=== PATIENT | male | born 1980 | race African-American/Black ===

== ENCOUNTER 2017-11-15 17:18 | Inpatient (IN) ==
--- NOTE | 2017-11-15 17:37 | Emergency Department Report ---
Chest Pain HPI - General Chief Complaint: Chest Pain <Ahmet Dee Q - 11/15/17 17:37> Stated Complaint: chest pain <Ahmet Dee - 11/15/17 17:37> Time Seen by Provider: 11/15/17 17:37 <Ahmet Dee Q - 11/15/17 17:37> Source: patient <Ahmet Dee Q - 11/15/17 18:31> Mode of arrival: ambulatory <Ahmet Dee Q - 11/15/17 18:31> Limitations: no limitations <Ahmet Dee - 11/15/17 18:31> - History of Present Illness HPI narrative: Patient is a 37-year-old male presents the ER for evaluation of rapid heart rate chest pain. Patient no history of rapid heart rate, some day smoker, hypertensive currently off his medications no cholesterol no prior MIs. Patient about half an hour prior to arrival developed left anterior chest pain with radiation to his left arm associated nausea or diaphoresis. Patient decided present to the ER with pain did not alleviate on arrival patient irregularly irregular rhythm at 147. <Baldo Deen Q - 11/15/17 18:31> MD complaint: chest pain <Ahmet Dee Q - 11/15/17 18:31> Onset (ago): minute(s) (30) <Ahmet Dee - 11/15/17 18:31> Duration: constant <Ahmet Dee - 11/15/17 18:31> Onset: during rest <Baldo Deen Q - 11/15/17 18:31> Pain location: substernal, left chest <Baldo Deen Romy - 11/15/17 18:31> Quality: tightness <Baldo Deen Q - 11/15/17 18:31> Aspirin Today: 81 mg x 4, provided by ED <Baldo Deen Romy - 11/15/17 18:31> - Related Data Home Medications Medication Instructions Recorded Confirmed hydroCHLOROthiazide 25 mg PO DAILY 11/15/1718 [Hydrochlorothiazide] <Baldo Deen Q - 11/15/17 18:31> Allergies Allergy/AdvReac Type Severity Reaction Status Date / Time diltiazem [From Cardizem] Allergy Mild Itching Verified 11/15/17 17:52 <Ahmet Dee Q - 11/15/17 18:31> Review of Systems Constitutional: Denies: fever, chills <Ahmet Dee Q - 11/15/17 18:31> Eyes: Denies: eye pain, eye discharge <Ahmet Dee Q - 11/15/17 18:31> ENT: Denies: throat pain, dental pain <Ahmet Dee Q - 11/15/17 18:31> Cardiovascular: Reports: chest pain, palpitations, dyspnea on exertion < Baldo Deen Q - 11/15/17 18:31> Respiratory: Denies: cough, dyspnea, wheezes <Ahmet Dee Q - 11/15/17 18:31 > Gastrointestinal: Denies: abdominal pain, nausea, vomiting <Ahmet Dee Q - 11/15/17 18:31> Genitourinary: Denies: urgency, dysuria, frequency <Ahmet Dee Q - 18:31> Neurological: Denies: headache, weakness <Ahmet Dee Q - 11/15/17 18:31> Psychiatric: Denies: anxiety, depression <Ahmet Dee Q - 11/15/17 18:31> Endocrine: Denies: fatigue, heat or cold intolerance <Ahmet Dee Q - 18:31> Hematological/Lymphatic: Denies: easy bleeding <Ahmet Dee Q - 11/15/17 18: 31> [facility] Patient Stated Medical History Hypertension Yes <Ahmet Dee Q - 11/15/17 18:31> - Social History Smoking status: Current some day smoker <Ahmet Dee Q - 11/15/17 18:31> Substance use type: does not use <Ahmet Dee Q - 11/15/17 18:31> Alcohol intake frequency: does not drink <Ahmet Dee Q - 11/15/17 18:31> Physical Exam - Limitations Limitations: no limitations <Ahmet Dee Q - 11/15/17 18:31> - General General appearance: alert <Ahmet Dee Q - 11/15/17 18:31> - Eye Eye exam: Present: PERRL, EOMI <Ahmet Dee Q - 11/15/17 18:31> - ENT ENT exam: Present: normal oropharynx, mucous membranes moist, TM's normal bilaterally <Baldo Deen Q - 11/15/17 18:31> - Neck Neck exam: Present: full ROM, trachea midline <Baldo Deen Q - 11/15/17 18: 31> - Chest Chest inspection: Present: symmetric chest wall rise. Absent: tenderness < Baldo Deen Q - 11/15/17 18:31> - Respiratory Respiratory exam: Present: normal lung sounds bilaterally. Absent: respiratory distress, wheezes, stridor <Baldo Deen Q - 11/15/17 18:31> - Cardiovascular Cardiovascular exam: Present: regular rate, normal rhythm, normal heart sounds <Baldo Deen 11/15/17 18:31> - Abdominal Exam Abdominal exam: Present: soft, normal bowel sounds. Absent: distention, tenderness <Baldo Deen 11/15/17 18:31> - Skin Skin exam: Present: warm, dry <Baldo Deen - 11/15/17 18:31> - Neurological Exam Neurological exam: Present: alert, oriented X3 <Baldo Deen Q - 11/15/17 18: 31> - Psychiatric Psychiatric exam: Present: normal affect, normal mood <Baldo Deen - 11/15 18:31> Course - Consultations Consultation #1: Dr. Craig: Admit to CCU. Cont esmolol and start amiodarone drip. <eb 11/15/17 20:16> Time: 20:05 <February,Hector 11/15/17 20:12> Vital Signs Temperature 98.6 F 11/15/17 17:21 Pulse Rate 79 11/15/17 17:21 Respiratory Rate 18 11/15/17 17:21 Blood Pressure 176/62 H 11/15/17 17:21 Pulse Oximetry 100 11/15/17 17:21 Temperature 98.8 F 11/16/17 11:30 Pulse Rate 125 H 11/16/17 11:45 Respiratory Rate 18 11/16/17 11:30 Blood Pressure 165/81 H 11/16/17 11:30 Pulse Oximetry 98 11/16/17 11:30 <Ahmet Dee - 11/15/17 17:37> Chest Pain - MDM Narrative Medical decision making narrative: Assumed care of pt at 1815; no evidence of ACS as cause of pts new-onset A-fib with RVR. EKG unremarkable. CXR unrevealing. Concern for PE as cause of pts sx. Will order CT-PE. CT-PE was negative, though sub-optimal perfusion at time images were collected. Pts HR has risen, despite repeated labetalol doses. Ordered esmolol drip and contacted recreational director for admission. Pt has been accepted for admission to CCU for further eval/treatment. After pt had been accepted to CCU, and after esmolol drip had been started and amiodarone bolus given, pt was seen to have a HR in the 180s and BP of 70/40. Pt was immediately assessed and found to be awake and alert. A repeat BP with a manual cuff was 110/50. Esmolol was increased to 100mcg/kg/min, with little change in pts HR, so rate was increased to 150mcg/kg/min. Pts HR then decreased to the 160s and BP was 140s/70s. After observing and HR remaining in the 160s, rate was increased to 200mcg/kg/min with resulting decrease in HR to 110s-130s and improvement in pts sx. Pt was then transferred to the CCU in stable condition. <11/15/17 21:34> - Differential Diagnosis Likely: fracture of rib, pneumothorax, stable angina, unstable angina pectoris, atypical chest pain, st elevation myocardial infarction, costochondritis, chest pain (PE) <11/15/17 20:12> - Medical Records Data Attestation: I reviewed the patient's medical records. <11/15 20:12> I reviewed the patient's medical records. <Ahmet Dee 11/15/17 18:31> - Lab Data Attestation: I reviewed the patient's lab results. <11/15/17 20:12> I reviewed the patient's lab results. <Ahmet Dee 11/15 18:31> Result diagrams: 11/16/17 04:12 11/16/17 04:12 <Ahmet Dee Q - 11/15/17 17:37> Lab Results 11/15/17 11/15/17 Range/Units 17:43 17:43 WBC 7.4 (4.5-11.0) T/MM3 RBC 5.08 (4.50-5.90) M/MM3 Hgb 14.7 (13.5-17.5) GM/DL Hct 43.2 (41-53) % MCV 85.0 (80-100) UM3 MCH 28.9 (26-34) UUG MCHC 34.0 (31-37) GM/DL RDW Std Deviation 40.9 (36.9-50.2) FL Plt Count 248 (130-400) T/MM3 MPV 10.1 (9.4-12.4) UM3 Immature Gran % (Auto) 0.1 (0.0-0.5) % Neut % (Auto) 42.8 (33-66) % Lymph % (Auto) 44.0 (23-45) % Craven % (Auto) 7.0 (0-9.0) % Eos % (Auto) 5.8 H (0-4) % Baso % (Auto) 0.3 (0-2) % Neut # (Auto) 3.2 (1.8-7.7) T/MM3 Lymph # (Auto) 3.3 (1-4.8) T/MM3 Craven # (Auto) 0.5 (0-0.8) T/MM3 Eos # (Auto) 0.4 (0-0.5) T/MM3 Baso # (Auto) 0.0 (0-0.2) T/MM3 Abs Immat Gran (auto) 0.01 (0.00-0.03) T/MM3 Turbidity < 20 (0-20) Sodium 143 (134-144) MEQ/L Potassium 4.2 (3.6-5) MEQ/L Chloride 105 (98-107) MEQ/L Carbon Dioxide 26 (22-30) MEQ/L Anion Gap 12 (5-15) MEQ/L BUN 15.0 (9-20) MG/DL Creatinine 0.9 (0.8-1.5) MG/DL GFR Calculation 95 BUN/Creatinine Ratio 17 (6-26) RATIO Glucose 106 (75-110) MG/DL Calculated Osmolality 276 (261-280) MOSM/KG Calcium 9.3 (8.4-10.2) MG/DL Total Bilirubin 0.40 (0.20-1.30) MG/DL Icterus Index < 2 (0-7) AST 37 (17-59) U/L ALT 36 (21-72) U/L Alkaline Phosphatase 107 (38-126) U/L Troponin I < 0.012 (0-0.12) ng/ml B-Natriuretic Peptide 56.2 (0-175) pg/mL Total Protein 8.3 H (6.3-8.2) G/DL Albumin 4.7 (3.5-5.0) G/DL Globulin 3.6 (2.4-3.6) G/DL Albumin/Globulin Ratio 1.3 (1.1-2.2) RATIO Specimen Hemolysis 54 H (0-25) <Shrub OakAhmet paez 11/15/17 18:31> - Radiology Data Attestation: I reviewed the patient's radiology results. < 20:12> CT PE: IMPRESSION: 1. No evidence of pulmonary embolism. 2. No alveolar infiltrate. 3. Right basilar linear parenchymal scarring or subsegmental collapse / atelectasis. <11/15/17 20:12> - EKG Data EKG #1 EKG attestation: Yes: I reviewed and interpreted this EKG. <LuizAhmet paez 11/15/17 18:31> Rate: tachycardia <Shrub OakAhmet paez 11/15/17 18:31> Rhythm: A.Fib <Shrub OakAhmet 11/15/17 18:31> [place]/QRS: normal <Shrub OakAhmet paez 11/15/17 18:31> Interpretation: no acute changes <Ahmet Dee 11/15/17 18:31> EKG #2 EKG attestation: Yes: I reviewed and interpreted this EKG. <02/25 21:24> EKG shows normal: axis, intervals, QRS complexes, ST-T waves < 21:24> Rate: tachycardia (103) <11/15/17 21:24> Rhythm: A.Fib <11/15/17 21:24> Critical Care Time Critical Care Time: Yes <11/15/17 21:34> Total Critical Care Time: 75 <11/15/17 21:34> Attestation: 75 min of critical care time assigned to this case due to its urgency, complexity of decision making, need for continued patient re-evaluation, or resources devoted to stabilizing the patient. <11/15/17 21:34> Disposition Clinical Impression: Atrial fibrillation with RVR <Ahmet Dee 11/16/17 12:45> Disposition: 02 To [facility] Acute Care <Ahmet Dee 11/16/17 12:45> Print Language: Mongolian <Ahmet Dee 11/16/17 12:45> Condition: Improved <Ahmet Dee 11/16/17 12:45> Prescriptions: No Action hydroCHLOROthiazide [Hydrochlorothiazide] 25 mg PO DAILY <Ahmet Dee 11/15/17 18:31> Time of Disposition: 20:16 <11/15/17 20:16> - Seen By: physician <11/15/17 20:16>
[2017-11-15] MEDS ORDERED: NITROGLYCERIN 0.4 MG SUBLINGUAL TABLET SL PRN (17:41)
[2017-11-15] MEDS ORDERED: ASPIRIN 81 MG CHEWABLE TABLET PO ONE (17:41)
[2017-11-15] MEDS ORDERED: DiltiaZEM 25 MG/5 ML INJECTION IVP ONE (17:42)
[2017-11-15] MEDS ORDERED: DiltiaZEM Drip 125 MG in NS 125 ML IV SCH (17:45)
[2017-11-15] MEDS ORDERED: LABETALOL 100mg/20ml INJECTION IVP ONE ×2 (17:49→18:42)
--- OUTSIDE RECORDS SUMMARY | 2017-11-15 17:52 | External Medical Summary | Continuity of Care Document ---
:1980 Author Organization [facility] [place] Allergies Active Description Code Type Severity Reaction Onset Reported/ Identified Relationship Clinical to Patient Status Yes No Known NKMA N/A N/A 11/18/2015 Allergies Medications There is no data. Problems Date Dx Attending Type Code Diagnosis Diagnosed By Coded 02/16/2014 Juan WEN, Admitting 607.82 VASCULAR DISORDER Thomas PENIS 02/16/2014 Juan WEN, Final 878.0 OPEN WOUND PENIS Thomas 02/25/2016 Harsha Final G47.10 Hypersomnia, Marquez, unspecified Jeff A 02/25/2016 Harsha Final G47.26 Circadian rhythm Marquez, sleep disorder, Jeff A shift work type 02/25/2016 Harsha Final R06.83 Snoring Marquez, Jeff A 03/02/2017 Merry, Final L02.416 Cutaneous abscess Geena M of left lower limb 03/18/2017 Luinstra, Final E66.9 Obesity, Bayron Hernández unspecified 03/18/2017 Luinstra, Final E78.5 Hyperlipidemia, Bayron Edgar unspecified 03/18/2017 Lu[place]ra, Final I10 Essential Bayron Hernández (primary) hypertension 03/18/2017 Lu[place]ra, Final R06.83 Snoring Bayron Edgar Procedures Code Description [place] [address] Office or 02/25/2016 other outpatient visit for the evaluation and management of a new patient, which requires these 3 lamb components: A comprehensive history; A comprehensive examination; Medical decision parvez 84178 Culture, 03/02/2017 presumptive, pathogenic organisms, screening only;.. 61123 Infectious 03/02/2017 agent antigen detection by immunoassay with direct optical observation; Streptococcus, group A.. 77559 Office or 03/02/2017 other outpatient visit for the evaluation and management of an established patient, which requires at least 2 of these 3 lamb components: An expanded problem focused history; An expanded prob 24002 Collection of 03/18/2017 venous blood by venipuncture 00987 General 03/18/2017 health panel This panel must include the following: Comprehensive metabolic panel (28984) Blood count, complete (CBC), automated and automated differential WBC count (59043 or 30346 and 94934) 94118 Comprehensive 03/18/2017 metabolic panel This panel must include the following: Albumin (41795) Bilirubin, total (80797) Calcium, total (28062) Carbon dioxide (bicarbonate) (69634) Chloride (15362) Creatinine (8 45575 Lipid panel 03/18/2017 This panel must include the following: Cholester 33070 Thyroid 03/18/2017 stimulating hormone (TSH) 35563 Blood count; 03/18/2017 complete (CBC), automated (Hgb, Hct, RBC, WBC and platelet count) and automated differential WBC count 65382 Office or 03/18/2017 other outpatient visit for the evaluation and management of an established patient, which requires at least 2 of these 3 lamb components: A detailed history; A detailed examination; Medical d Results Test Result Range Rapid Strep - 03/02/17 15:40 Rapid Strep Negative NA Negative CBC With Platelet and Differential - 03/18/17 00:00 Absolute Basophils 0.01 10*3/uL 0.00-0.20 Absolute Eosinophils 0.37 10*3/uL 0.00-0.50 Absolute Lymphocytes 1.63 10*3/uL 0.80-3.30 Absolute Monocytes 0.53 10*3/uL 0.30-1.00 Absolute Neutrophils 3.03 10*3/uL 1.90-7.00 Basophils 0 % 0-2 Eosinophils 7 % 0-4 HCT 41.7 % 42.0-52.0 HGB 13.8 g/dL 14.0-18.0 Immature Granulocytes 0.2 % 0.0-1.0 Lymphocytes 29 % 20-46 MCH 28.3 pg 27.0-32.0 MCHC 33.1 g/dL 32.0-36.0 MCV 85.6 fL 82.0-99.0 Monocytes 10 % 4-11 MPV 10.3 fL 8.8-14.8 Neutrophils 54 % 51-75 Platelet Count 271 K/uL 150-400 RBC 4.87 10*6/uL 4.60-6.20 RDW 13.3 % 11.5-14.5 WBC 5.6 K/uL 4.8-10.8 Comprehensive Metabolic Panel (CMP) - 03/18/17 00:00 Albumin 4.3 g/dL 3.5-5.0 Alkaline Phosphatase 97 U/L 40-150 ALT (SGPT) 32 U/L 0-55 Anion Gap 9 mEq/L 3-20 AST (SGOT) 20 U/L 5-34 Bilirubin Total 0.6 mg/dL 0.2-1.2 BUN 13 mg/dL 9-21 Calcium 9.2 mg/dL 8.4-10.2 Chloride 106 mEq/L 99-111 CO2 28 mEq/L 23-31 Creatinine 0.96 mg/dL 0.72-1.25 Globulin 3.3 g/dL 1.8-4.0 Glucose 94 mg/dL 70-99 Potassium 3.9 mEq/L 3.5-5.2 Protein 7.6 g/dL 6.1-7.7 Sodium 143 mEq/L 135-144 Lipid Panel - 03/18/17 00:00 Cardiac Risk 6.3 0.0-5.7 Cholesterol 233 mg/dL 0-199 HDL Cholesterol 37 mg/dL 40-84 LDL Cholesterol 159 mg/dL 0-130 Triglycerides 186 mg/dL 0-149 VLDL Cholesterol 37 mg/dL 0-28 eGFR - 03/18/17 00:00 eGFR >60 mL/min >60 TSH with Reflex Free T4 - 03/18/17 00:00 TSH with Reflex Free T4 0.53 uIU/mL 0.35-4.94 Encounters ACCT No. Visit Discharge Status Pt. Type Provider Facility Loc./Unit Complaint Date/Time [id number] 02/16/2014 02/16/2014 DIS Emergency [place] [facility] 7 20[facility]09[facility]00 [facility]51[facility] [place] [id number] 03/18/2017 03/18/2017 DIS Outpatien Luinstra, [facility] 6 mo junaid 46 15:48:00 23:59:00 danay Hern[facility]dez [facility] [id number] 03/02/2017 03/02/2017 DIS Outpatien [place] [facility] sore throat 64 15:18:00 23:59:00 t , [facility] possible spider bite [id number] 02/25/2016 02/25/2016 DIS Outpatien Harsha [facility] Harris 41 13:03:00 23:59:00 t [facility] SNORING POSS SL APNEA [id number] 01/02/2016 01/02/2016 DIS Outpatien Luinstra, [facility] 1 mo junaid 91 10:30:00 23:59:00 t Bayron [facility]quez [facility] [id number] 12/26/2015 12/26/2015 DIS Outpatien [place], [facility] E21 NPV RASH 53 08:13:00 23:59:00 t [facility] [id number] 12/04/2015 12/04/2015 DIS Outpatien Luinstra, [facility] NPV 21 10:23:00 23:59:00 danay Vasquez [facility] [id number] 11/18/2015 11/18/2015 DIS Outpatien Komarek, [facility] SORE THROAT 04 15:26:00 23:59:00 danay [facility]
--- OUTSIDE RECORDS SUMMARY | 2017-11-15 17:52 | External Medical Summary | Referral Summary ---
:1980 Author Organization [facility] Address [address] [place] [id number] Care Team Providers Name Role Phone Bayron Mloina Primary Care Physician Encounter [facility] [id number] Date(s): 12/26/15 - 12/26/15 [facility] [address] [place] [address]- [place] Discharge Diagnosis: Dissecting cellulitis of scalp Discharge Disposition: 01-Home or Self Care Attending Physician: Jayy Foreman MD Admitting Physician: Jayy Foreman MD Referring Physician: Bayron Molina MD Vital Signs No data available for this section Problem List Condition Effective Dates Status Health Status Informant Adult-onset obesity(Confirmed) Active Benign essential Active hypertension(Confirmed) Rash(Confirmed) Active Hyperlipidemia(Confirmed) Active Snoring(Confirmed) Active Allergies, Adverse Reactions, Alerts No Known Allergies Medications doxycycline hyclate 100 mg oral capsule 100 mg 1 caps, Oral, BID, # 180 caps, 3 Refill(s), Pharmacy: [facility] [id number], 1 caps OralBID Start Date: 12/26/15 Status: Orderedhydrochlorothiazide 25 mg oral tablet 25 mg 1 tabs, Oral, Daily, # 90 tabs, 0 Refill(s), Pharmacy: [facility] [id number], 1 tabs OralDaily Start Date: 12/04/15 Status: Ordered Results No data available for this section Immunizations No data available for this section Procedures No data available for this section Social History Social History Type Response Smoking Status Former smoker; Number of years: 5 Assessment and Plan Extracted from: Title: Office Visit Note Author: Jayy Foreman MD Date: 12/26/15 Assessment/Plan 1.Dissecting cellulitis of scalp He is currently moderate but RA expensive some scarring and hair loss. We will start with doxycycline. We discussed risks and safe and proper use of the medica tion and the importance of sun protection. Follow-up in a few months to see how he is doing and adjust therapybased on his response. Future options could be clindamycin and rifampin or isotretinoi n. We can alsodrain or inject acutely painful nodules as needed Ordered: doxycycline, 100 mg 1 caps, Oral, BID, # 180 caps, 3 Refill(s), Pharmacy: [facility] [id number], 1 caps Oral BID Office Visit Level 2 New [address]1505 Addendum by Jayy Foreman MD on December/P should read "he is currently moderate 2015 08:52:18 CDT but already experiencing some scarring and hair loss"
--- OUTSIDE RECORDS SUMMARY | 2017-11-15 17:52 | External Medical Summary | Referral Summary ---
:1980 Author Organization [facility] [place] Address [address] [place] [address] Care Team Providers Name Role Phone Bayron Molina Primary Care Physician Encounter [facility] Date(s): 02/25/16 - 02/25/16 [facility] [place] [address] [place] [address]- [phone] Discharge Diagnosis: Snoring Discharge Diagnosis: Hypersomnia Discharge Diagnosis: Shift work sleep disorder Discharge Disposition: 01-Home or Self Care Attending Physician: Jeff Rivas MD Admitting Physician: Jeff Rivas MD Referring Physician: Bayron Molina MD Vital Signs Most recent to oldest [Reference Range]: 1 Peripheral Pulse Rate [60-100 bpm] 82 bpm (02/25/16 2:18 PM) Blood Pressure [90-140/60-90 mmHg] 122/74 mmHg (02/25/16 2:18 PM) SpO2 93 % (02/25/16 2:18 PM) Problem List Condition Effective Dates Status Health Status Informant Adult-onset obesity(Confirmed) Active Benign essential Active hypertension(Confirmed) Rash(Confirmed) Active Hyperlipidemia(Confirmed) Active Snoring(Confirmed) Active Allergies, Adverse Reactions, Alerts No Known Allergies Medications doxycycline hyclate 100 mg oral capsule 100 mg 1 caps, Oral, BID, # 180 caps, 3 Refill(s), Pharmacy: [facility] [id number], 1 caps OralBID Start Date: 12/26/15 Status: Orderedhydrochlorothiazide 25 mg oral tablet 25 mg 1 tabs, Oral, Daily, # 90 tabs, 0 Refill(s), Pharmacy: [facility] [id number], 1 tabs OralDaily Start Date: 2/24/16 Status: Ordered Results No data available for this section Immunizations No data available for this section Procedures No data available for this section Social History Social History Type Response Smoking Status Former smoker; Number of years: 5 Assessment and Plan Extracted from: Title: Office Visit Note Author: Jeff Rivas MD Date: 02/25/16 Assessment/Plan 1.Snoring 2.Hypersomnia 3.Shift work sleep disorder Snoring,sleepiness and shift work disorder. Suspected Sleep Apnea. Patient has multiple risk factors for obstructive sleep apnea. Pre-test probability for sleep apnea is moderate. He is a good candidate for a split night test (preferred due to history of shift work), but he is also otherwise a good candidate for home sleep testing. After discussing differences and costs, he opted to have test done in-lab, he can change this if needed. The testing process was explained to the patient in detail. Other testing options as well as therapeutic options were briefly discussed. We will see patient6 weeks after test to discuss results and management plan. Patient verbalized understanding and agrees with plan. Patient is advised to avoid driving and other potentially harmful activities if sleepy, drowsy or otherwise impaired. Countermeasures to sleepiness include naps before driving, pulling over to nap if driving and caffeine if patient is not in a potentially harmful setting.
--- OUTSIDE RECORDS SUMMARY | 2017-11-15 17:52 | External Medical Summary | Referral Summary ---
:1980 Author [facility] Address [address] [place] [address] [place] [phone] Care Team Providers Name Role Phone Bayron Molina Primary Care Physician Encounter [facility] Date(s): 12/04/15 - 12/04/15 [facility] [address] [place] [phone] [place] Discharge Disposition: 01-Home or Self Care Attending Physician: Bayron Molina MD Admitting Physician: Bayron Molina MD Vital Signs Most recent to oldest [Reference Range]: 1 Blood Pressure [90-140/60-90 mmHg] 160/100 mmHg *HI* (12/04/15 10:37 AM) Problem List Condition Effective Dates Status Health Status Informant Adult-onset obesity(Confirmed) Active Benign essential Active hypertension(Confirmed) Rash(Confirmed) Active Hyperlipidemia(Confirmed) Active Snoring(Confirmed) Active Allergies, Adverse Reactions, Alerts No Known Allergies Medications hydrochlorothiazide 25 mg oral tablet 25 mg 1 tabs, Oral, Daily, # 90 tabs, 0 Refill(s), Pharmacy: [facility] [id number], 1 tabs OralDaily Start Date: 12/04/15 Status: Ordered Results Hematology Most recent to oldest [Reference Range]: 1 WBC [4.8-10.8 10*3/uL] 6.9 10*3/uL (12/04/15 10:58 AM) RBC [4.60-6.20] 4.74 (12/04/15 10:58 AM) Hgb [14.0-18.0 gm/dL] 13.9 gm/dL *LOW* (12/04/15 10:58 AM) Hct [42.0-52.0 %] 40.9 % *LOW* (12/04/15 10:58 AM) MCV [82.0-99.0 fL] 86.3 fL (12/04/15 10:58 AM) MCH [27.0-32.0 pg] 29.3 pg (12/04/15 10:58 AM) MCHC [32.0-36.0 gm/dL] 34.0 gm/dL (12/04/15 10:58 AM) RDW [11.5-14.5 %] 13.7 % (12/04/15 10:58 AM) Platelet [150-400 10*3/uL] 270 10*3/uL (12/04/15 10:58 AM) MPV [8.8-14.8 fL] 10.5 fL (12/04/15 10:58 AM) Immature Granulocytes [0.0-1.0 %] 0.1 % (12/04/15 10:58 AM) Neutrophils [51-75 %] 51 % (12/04/15 10:58 AM) Lymphocytes [20-46 %] 31 % (12/04/15 10:58 AM) Monocytes [4-11 %] 10 % (12/04/15 10:58 AM) Eosinophils [0-4 %] 7 % *HI* (12/04/15 10:58 AM) Basophils [0-2 %] 0 % (12/04/15 10:58 AM) Neutro Absolute [1.90-7.00 10*3] 3.55 10*3 (12/04/15 10:58 AM) Lymph Absolute [0.80-3.30 10*3] 2.15 10*3 (12/04/15 10:58 AM) Fergus Absolute [0.30-1.00 10*3] 0.72 10*3 (12/04/15 10:58 AM) Eos Absolute [0.00-0.50 10*3] 0.48 10*3 (12/04/15 10:58 AM) Baso Absolute [0.00-0.20 10*3] 0.01 10*3 (12/04/15 10:58 AM) Chemistry Most recent to oldest [Reference Range]: 1 Sodium Lvl [135-144 mEq/L] 142 mEq/L (12/04/15 10:58 AM) Potassium Lvl [3.5-5.2 mEq/L] 4.2 mEq/L (12/04/15 10:58 AM) Chloride [99-111 mEq/L] 106 mEq/L (12/04/15 10:58 AM) CO2 [23-31 mEq/L] 30 mEq/L (12/04/15 10:58 AM) AGAP [3-20] 6 (12/04/15 10:58 AM) BUN [9-21 mg/dL] 16 mg/dL (12/04/15 10:58 AM) Glucose Lvl [70-99 mg/dL] 94 mg/dL (12/04/15 10:58 AM) Creatinine Lvl [0.72-1.25 mg/dL] 0.85 mg/dL (12/04/15 10:58 AM) eGFR [>60 mL/min] >60 mL/min 1 (12/04/15 10:58 AM) Calcium Lvl [8.9-10.5 mg/dL] 9.2 mg/dL (12/04/15 10:58 AM) Albumin Lvl [3.5-5.0 gm/dL] 4.0 gm/dL (12/04/15 10:58 AM) Total Protein [6.4-8.3 gm/dL] 7.1 gm/dL (12/04/15 10:58 AM) Globulin [1.8-4.0 gm/dL] 3.1 gm/dL (12/04/15 10:58 AM) ALT [0-55 U/L] 33 U/L (12/04/15 10:58 AM) AST [5-34 U/L] 20 U/L (12/04/15 10:58 AM) Alk Phos [40-150 U/L] 112 U/L (12/04/15 10:58 AM) Bili Total [0.2-1.2 mg/dL] 0.3 mg/dL (12/04/15 10:58 AM) Chol [0-199 mg/dL] 185 mg/dL (12/04/15 10:58 AM) Trig [0-149 mg/dL] 118 mg/dL (12/04/15 10:58 AM) HDL [40-84 mg/dL] 43 mg/dL (12/04/15 10:58 AM) LDL [0-130 mg/dL] 118 mg/dL (12/04/15 10:58 AM) VLDL Cholesterol [0-28 mg/dL] 24 mg/dL (12/04/15 10:58 AM) Cardiac Risk [0.0-5.7] 4.3 (12/04/15 10:58 AM) TSH with Reflex Free T4 [0.35-4.94] 1.63 (12/04/15 10:58 AM) 1Result Comment: Multiply eGFR results by 1.21 for race.Urinalysis Most recent to oldest [Reference Range]: 1 UA Color Yellow (12/04/15 11:18 AM) UA Appear Clear (12/04/15 11:18 AM) UA pH [5.0-8.0] 5.5 (12/04/15 11:18 AM) UA Leuk Est [Negative] Negative (12/04/15 11:18 AM) UA Nitrite [Negative] Negative (12/04/15 11:18 AM) UA Protein [Negative] Negative (12/04/15 11:18 AM) UA Glucose [Negative] Negative (12/04/15 11:18 AM) UA Ketones [Negative] Negative (12/04/15 11:18 AM) UA Urobilinogen [<1.0 mg/dL] 1.0 mg/dL (12/04/15 11:18 AM) UA Bili [Negative] Negative (12/04/15 11:18 AM) UA Blood [Negative] Negative (12/04/15 11:18 AM) UA Spec Grav [1.003-1.030] 1.027 (12/04/15 11:18 AM) Type Voided (12/04/15 11:18 AM) Immunizations No data available for this section Procedures Procedure Date Related Diagnosis Body Site Collection of venous blood by venipuncture 12/04/15 Social History Social History Type Response Smoking Status Former smoker; Number of years: 5 Assessment and Plan Extracted from: Title: Ambulatory Patient Education Author: Bayron Molina MD Date: Family Medicine Cholesterol Cholesterol is a white, waxy, fat-like substance needed by your body in small amounts. The liver makes all the cholesterol you need. Cholesterol is carried from the liver by the blood through the blood vessels. Deposits of cholesterol (plaque) may build up on blood vessel davalos. These make the arteries narrower and stiffer. Cholesterol plaques increase the risk for heart attack and stroke. You cannot feel your cholesterol level even if it is very high. The only way to know it is high is with a blood test. Once you know your cholesterol levels, you should keep a record of the test results. Work with your health care provider to keep your levels in the desired range. WHAT DO THE RESULTS MEAN? Total cholesterol is a rough measure of all the cholesterol in your blood. LDL is the so-called bad cholesterol. This is the type that deposits cholesterol in the davalos of the arteries. You want this level to be low. HDL is the good cholesterol because it cleans the arteries and carries the LDL away. You want this level to be high. Triglycerides are fat that the body can either burn for energy or store. High levels are closely linked to heart disease. WHAT ARE THE DESIRED LEVELS OF CHOLESTEROL? Total cholesterol below 200. LDL below 100 for people at risk, below 70 for those at very high risk. HDL above 50 is good, above 60 is best. Triglycerides below 150. HOW CAN I LOWER MY CHOLESTEROL? Diet. Follow your diet programs as directed by your health care provider. Choose fish or white meat chicken and turkey, roasted or baked. Limit fatty cuts of red meat, fried foods, and processed meats, such as sausage and lunch meats. Eat lots of fresh fruits and vegetables. Choose whole grains, beans, pasta, potatoes, and cereals. Use only small amounts of olive, corn, or canola oils. Avoid butter, mayonnaise, shortening, or palm kernel oils. Avoid foods with trans fats. Drink skim or nonfat milk and eat low-fat or nonfat yogurt and cheeses. Avoid whole milk, cream, ice cream, egg yolks, and full-fat cheeses. Healthy desserts include fei food cake, donna snaps, animal crackers , hard candy, popsicles, and low-fat or nonfat frozen yogurt. Avoid pastries, cakes, pies, and cookies. Exercise. Follow your exercise programs as directed by your health care provider. A regular program helps decrease LDL and raise HDL. A regular program helps with weight control. Do things that increase your activity level like gardening, walking, or taking the stairs. Ask your health care provider about how you can be more active in your daily life. Medicine. Take medicine only as directed by your health care provider. Medicine may be prescribed by your health care provider to help lower cholesterol and decrease the risk for heart disease. If you have several risk factors, you may need medicine even if your levels are normal. This information is not intended to replace advice given to you by your health care provider. Make sure you discuss any questions you have with your health care provider. Document Released: 06/22/2002 Document Revised: 02/11/2015 Document Reviewed: 07/11/2014 ExitCare Patient Information 2015 [employer]. No follow up information was provided. Extracted from: Title: Office Visit Note Author: Bayron Molina MD Date: 12/04/15 Assessment/Plan Adult-onset obesity Diet and exercise as tolerated and feasible. Consider medication when interested. Benign essential hypertension Trial of hctz 25mg po daily. BP journal and recheck appt in 30 days. A work/school note was offered and deferred by the patient. Ordered: CBC w/ Differential Comprehensive Metabolic Panel Lipid Panel TSH with Reflex Free T4 Urinalysis with Culture if Indicated Hyperlipidemia Lab pending due to history. A work/school note was offered and deferred by the patient. The patient has family members present who are agreeable with today's plan and have no additional concerns or requests. Rash To [facility] Dermatology for evaluation. Snoring To Sleep Medicine when willing. Orders: hydrochlorothiazide, 25 mg 1 tabs, Oral, Daily, # 90 tabs, 0 Refill(s ), Pharmacy: [facility] [id number], 1 tabs Oral Daily
--- OUTSIDE RECORDS SUMMARY | 2017-11-15 17:52 | External Medical Summary | Referral Summary ---
:1980 Author Organization [facility] [address] [place] [address] Care Team Providers Name Role Phone Bayron Molina Primary Care Physician Encounter [facility] [id number] Date(s): 01/02/16 - 01/02/16 [facility] [address] [place] [phone] [place] Discharge Disposition: 01-Home or Self Care Attending Physician: Bayron Molina MD Admitting Physician: Bayron Molina MD Vital Signs Most recent to oldest [Reference Range]: 1 Blood Pressure [90-140/60-90 mmHg] 140/100 mmHg (01/02/16 10:40 AM) Problem List Condition Effective Dates Status Health Status Informant Adult-onset obesity(Confirmed) Active Benign essential Active hypertension(Confirmed) Rash(Confirmed) Active Hyperlipidemia(Confirmed) Active Snoring(Confirmed) Active Allergies, Adverse Reactions, Alerts No Known Allergies Medications doxycycline hyclate 100 mg oral capsule 100 mg 1 caps, Oral, BID, # 180 caps, 3 Refill(s), Pharmacy: [facility] [id number], 1 caps OralBID Start Date: 12/26/15 Status: Orderedhydrochlorothiazide 25 mg oral tablet 25 mg 1 tabs, Oral, Daily, # 90 tabs, 0 Refill(s), Pharmacy: [facility] [id number], 1 tabs OralDaily Start Date: 12/04/15 Status: Ordered Results No data available for this section Immunizations No data available for this section Procedures No data available for this section Social History Social History Type Response Smoking Status Former smoker; Number of years: 5 Assessment and Plan Extracted from: Title: Ambulatory Patient Education Author: Bayron Molina MD Date: Allergy Allergies Allergies may happen from anything your body is sensitive to. This may be food , medicines, pollens, chemicals, and nearly anything around you in everyday life that produces allergens. An allergen is any thing that causes an allergy producing substance. Heredity is often a factor in causing these problems. This means you may have some of the same allergies as your parents. Food allergies happen in all age groups. Food allergies are some of the most severe and life threatening. Some common food allergies are cow's milk, seafood , eggs, nuts, wheat, and soybeans. SYMPTOMS Swelling around the mouth. An itchy red rash or hives. Vomiting or diarrhea. Difficulty breathing. SEVERE ALLERGIC REACTIONS ARE LIFE-THREATENING. This reaction is called anaphylaxis. It can cause the mouth and throat to swell and cause difficulty with breathing and swallowing. In severe reactions only a trace amount of food (for example, peanut oil in a salad) may cause within seconds. Seasonal allergies occur in all age groups. These are seasonal because they usually occur during the same season every year. They may be a reaction to molds , grass pollens, or tree pollens. Other causes of problems are house dust mite allergens, pet dander, and mold spores. The symptoms often consist of nasal congestion, a runny itchy nose associated with sneezing, and tearing itchy eyes. There is oft en an associated itching of the mouth and ears. The problems happen when you come in contact with pollens and other allergens. Allergens are the particles in the air that the body reacts to with an ulises rgic reaction. This causes you to release allergic antibodies. Through a chain of events, these eventually cause you to release histamine into the blood stream. Although it is meant to be protective to the body, it is this release that causes your discomfort. This is why you were given anti-histamines to feel better. If you are unable to pinpoint the offending allergen, it may be determined by skin or blood testing. Allergies cannot be cured but can be controlled with medicine. Hay fever is a collection of all or some of the seasonal allergy problems. It may often be treated with simple jxbp-gcy-zffudba medicine such as diphenhydramine. Take medicine as directed. Do not drink alcohol or drive while taking this medicine. Check with your caregiver or package insert for child dosages. If these medicines are not effective, there are many new medicines your caregiver can prescribe. Stronger medicine such as nasal spray, eye drops, and corticosteroids may be used if the first things you try do not work well. Other treatments such as immunotherapy or desensitizing injections can be used if all else fails. Follow up with your caregiver if problems continue. These seasonal allergies are usually not life threatening. They are generally more of a nuisance that can often be handled using medicine. HOME CARE INSTRUCTIONS If unsure what causes a reaction, keep a diary of foods eaten and symptoms that follow. Avoid foods that cause reactions. If hives or rash are present: Take medicine as directed. You may use an ylfv-wha-unzywwb antihistamine (diphenhydramine) for hives and itching as needed. Apply cold compresses (cloths) to the skin or take baths in cool water. Avoid hot baths or showers. Heat will make a rash and itching worse. If you are severely allergic: Following a treatment for a severe reaction, hospitalization is often required for closer follow-up. Wear a medic-alert bracelet or necklace stating the allergy. You and your family must learn how to give adrenaline or use an anaphylaxis kit. If you have had a severe reaction, always carry your anaphylaxis kit or EpiPen with you. Use this medicine as directed by your caregiver if a severe reaction is occurring. Failure to do so could have a fatal outcome. SEEK MEDICAL CARE IF: You suspect a food allergy. Symptoms generally happen within 30 minutes of eating a food. Your symptoms have not gone away within 2 days or are getting worse. You develop new symptoms. You want to retest yourself or your child with a food or drink you think causes an allergic reaction. Never do this if an anaphylactic reaction to that food or drink has happened before. Only do this under the care of a caregiver. SEEK IMMEDIATE MEDICAL CARE IF: You have difficulty breathing, are wheezing, or have a tight feeling in your chest or throat. You have a swollen mouth, or you have hives, swelling, or itching all over your body. You have had a severe reaction that has responded to your anaphylaxis kit or an EpiPen. These reactions may return when the medicine has worn off. These reactions should be considered life threatening. MAKE SURE YOU: Understand these instructions. Will watch your condition. Will get help right away if you are not doing well or get worse. This information is not intended to replace advice given to you by your health care provider. Make sure you discuss any questions you have with your health care provider. Document Released: 12/21/2003 Document Revised: 01/22/2014 Document Reviewed: 07/09/2015 [facility] Patient Information 2015 [facility]. Family Medicine Chest Pain Observation It is often hard to give a specific diagnosis for the cause of chest pain. Among other possibilities your symptoms might be caused by inadequate oxygen delivery to your heart (angina). Angina that is no t treated or evaluated can lead to a heart attack (myocardial infarction) or . Blood tests, electrocardiograms, and X-rays may have been done to help determine a possible cause of your chest pain. After evaluation and observation , your health care provider has determined that it i s unlikely your pain was caused by an unstable condition that requires hospitalization. However, a full evaluation of your pain may need to be completed, with additional diagnostic testing as directed. It is very important to keep your follow-up appointments. Not keeping your follow-up appointments could result in permanent heart damage, disability, or . If there is any problem keeping your follo w-up appointments, you must call your health care provider. HOME CARE INSTRUCTIONS Due to the slight chance that your pain could be angina, it is important to follow your health care provider's treatment plan and also maintain a healthy lifestyle: Maintain or work toward achieving a healthy weight. Stay physically active and exercise regularly. Decrease your salt intake. Eat a balanced, healthy diet. Talk to a dietitian to learn about heart- healthy foods. Increase your fiber intake by including whole grains, vegetables, fruits , and nuts in your diet. Avoid situations that cause stress, anger, or depression. Take medicines as advised by your health care provider. Report any side effects to your health care provider. Do not stop medicines or adjust the dosages on your own. Quit smoking. Do not use nicotine patches or gum until you check with your health care provider. Keep your blood pressure, blood sugar, and cholesterol levels within normal limits. Limit alcohol intake to no more than 1 drink per day for women who are not and 2 drinks per day for men. Do not abuse drugs. SEEK IMMEDIATE MEDICAL CARE IF: You have severe chest pain or pressure which may include symptoms such as: You feel pain or pressure in your arms, neck, jaw, or back. You have severe back or abdominal pain, feel sick to your stomach ( nauseous), or throw up (vomit). You are sweating profusely. You are having a fast or irregular heartbeat. You feel short of breath while at rest. You notice increasing shortness of breath during rest, sleep, or with activity. You have chest pain that does not get better after rest or after taking your usual medicine. You wake from sleep with chest pain. You are unable to sleep because you cannot breathe. You develop a frequent cough or you are coughing up blood. You feel dizzy, faint, or experience extreme fatigue. You develop severe weakness, dizziness, fainting, or chills. Any of these symptoms may represent a serious problem that is an emergency. Do not wait to see if the symptoms will go away. Call your local emergency services (911 in the [place] Do not drive yourself to the hospital. MAKE SURE YOU: Understand these instructions. Will watch your condition. Will get help right away if you are not doing well or get worse. This information is not intended to replace advice given to you by your health care provider. Make sure you discuss any questions you have with your health care provider. Document Released: 10/30/2011 Document Revised: 10/02/2014 Document Reviewed: 03/29/2014 ExitCare Patient Information 2015 [facility], [employer]. No follow up information was provided. Extracted from: Title: Office Visit Note Author: Bayron Molina MD Date: 01/02/16
--- OUTSIDE RECORDS SUMMARY | 2017-11-15 17:52 | External Medical Summary | Referral Summary ---
:1980 Author Organization [facility] Address [address] [place] [address] [place] [address] Care Team Providers Name Role Phone Bayron Molina Primary Care Physician Encounter [facility] [id number] Date(s): 11/18/15 - 11/18/15 [facility], [address] [place] [phone] [place] Discharge Diagnosis: Conjunctivitis Discharge Diagnosis: Elevated BP Discharge Diagnosis: Acute URI Discharge Disposition: 01-Home or Self Care Attending Physician: Neftaly Santoyo PA-C Admitting Physician: Neftaly Santoyo PA-C Vital Signs Most recent to oldest [Reference Range]: 1 Temperature Tympanic [36.6-38.1 degC] 36.9 degC (11/18/15 3:45 PM) Peripheral Pulse Rate [60-100 bpm] 112 bpm *HI* (11/18/15 3:45 PM) Blood Pressure [90-140/60-90 mmHg] 158/98 mmHg *HI* (11/18/15 3:45 PM) SpO2 96 % (11/18/15 3:45 PM) Problem List No data available for this section Allergies, Adverse Reactions, Alerts No Known Allergies Medications Tobrex 0.3% ophthalmic solution 1 drops, Eye-Both, QID, X 7 days, # 5 mL, 0 Refill(s), Pharmacy: [facility] [id number] Start Date: 11/18/15 Stop Date: 11/25/15 Status: Ordered Results No data available for this section Immunizations No data available for this section Procedures No data available for this section Social History Social History Type Response Smoking Status Former smoker; Number of years: 5 Assessment and Plan No data available for this section
[2017-11-15] MEDS: SALINE FLUSH 10ml SYRINGE IVF PRN ×3 (17:58→23:02)
[2017-11-15] MEDS ORDERED: IOHEXOL 350mg/ml 75ml INJECTION ONE (18:48)
[2017-11-15] MEDS ORDERED: SALINE FLUSH 10ml SYRINGE ONE (18:48)
[2017-11-15] MEDS ORDERED: ESMOLOL 100 MG/10 ML INJECTION IVP ONE (20:01)
[2017-11-15] MEDS ORDERED: AMIODARONE 150mg/3ml INJECTION IV ONE (20:11)
[2017-11-15] MEDS ORDERED: AMIODARONE 450 MG in NS 500ml 250 ML IV SCH (20:15)
[2017-11-15] MEDS: ESMOLOL DRIP 2,500 MG/250 ML BAG IV PRN ×2 (20:35→22:41)
[2017-11-15] MEDS ORDERED: MORPHINE SULFATE 2mg INJECTION IVP PRN (22:37)
[2017-11-15] MEDS ORDERED: ONDANSETRON 4 MG/2 ML INJECTION IVP PRN (22:37)
[2017-11-15] MEDS ORDERED: NICOTINE 21 MG PATCH TD PRN (22:37)
[2017-11-15] MEDS ORDERED: ACETAMINOPHEN 325 MG TABLET PO SCH (22:45)
[2017-11-15] MEDS ORDERED: ACETAMINOPHEN 325 MG TABLET PO PRN (22:53)
[2017-11-15 23:09] VITALS: BMI 42.8
[2017-11-15] MEDS ORDERED: DIGOXIN 500 MCG/2 ML INJECTION IVP ONE (23:23)
[2017-11-15] MEDS: ENOXAPARIN 150 MG/ML INJECTION SQ SCH (23:42)
[2017-11-16] MEDS: ESMOLOL DRIP 2,500 MG/250 ML BAG IV PRN ×2 (00:02→02:00)
[2017-11-16] MEDS ORDERED: METOPROLOL 5mg/5ml INJECTION IVP SCH (03:00)
[2017-11-16] MEDS: DIGOXIN 500 MCG/2 ML INJECTION IVP SCH ×2 (04:31→08:19)
[2017-11-16] MEDS ORDERED: AMIODARONE 450 MG in NS 500ml 250 ML IV SCH (05:00)
[2017-11-16] MEDS ORDERED: AMIODARONE 900 MG in NS 500ml 500 ML IV SCH (05:21)
[2017-11-16] MEDS ORDERED: NICOTINE PATCH REMOVAL TD PRN (06:26)
--- NOTE | 2017-11-16 08:12 | XRay Report ---
Indication: chest pain PROCEDURE: XR chest 1V: Encounter: Initial Comparison: None FINDINGS: The lungs are hypoinflated, but grossly clear. There is no abnormal airspace opacity, pleural effusion or pneumothorax identified. The cardiac silhouette is partially obscured and may be mildly enlarged. The pulmonary vasculature and mediastinum are within normal limits. No significant skeletal abnormality is seen. IMPRESSION: No acute cardiopulmonary abnormality. .
--- NOTE | 2017-11-16 08:15 | CT Scan Report ---
Indication: Abrupt onset A-fib with RVR PROCEDURE: CT angio pulm emboli: Encounter: Initial Comparison: None Technique: Axial CT pulmonary angiographic phase images were performed through the chest after the administration of intravenous contrast. Coronal and Sagittal MIP reconstructed images were created and reviewed. Automated Exposure Control and Iterative Reconstruction dose reducing techniques were utilized. Contrast: Omnipaque 350 74 mL Findings: Pulmonary arteries: Exam is diagnostic to the main pulmonary arterial level only. There is no large or central pulmonary embolus. The segmental and subsegmental pulmonary artery branches cannot be adequately evaluated due to poor contrast bolus. Other findings: Hypoinflation with right basilar atelectasis or scarring. 4 mm right upper lobe nodule on image #21 which does not require specific imaging follow-up. The central airways are patent. No pneumothorax. No axillary or mediastinal adenopathy. Heart size is normal. No pericardial effusion. The upper abdomen shows no acute findings. Impression: Limited exam without large or central pulmonary embolus. There is a preliminary report by [facility]. .
[2017-11-16] MEDS: Verapamil 5 MG/2 ML VIAL IVP SCH ×2 (08:31→13:56)
--- NOTE | 2017-11-16 09:01 | Cardiology History & Physical ---
History of Present Illness Chief complaint: chest pain HPI: Jeromy is a 37-year-old male with a history of HTN, HLD, who presented the ED for evaluation of rapid heart rate and chest pain. He denies history of rapid heart rate, hypertensive currently off his medications, no prior MIs. He reportedly about half an hour prior to arrival developed left anterior chest pain with radiation to his left arm associated nausea and diaphoresis. He decided to present to the ED when pain did not alleviate. On arrival EKG showed irregularly irregular rhythm at 147. He was given Diltiazem IVP and developed hives. Dr. Craig was contacted for admission to CCU with Esmolol drip for rate control. He is examined in CCU where he admits to illicit drug use in the last 3 days and excessive alcohol intake of a pint or more hard liquor daily. He recognizes his weight in addition to chronic disease increases his risks for cardiac complications. He denies recent illness, fever, chills, sore throat, cough, N/V/ D. Review of Systems - Constitutional Constitutional: Present: as per HPI. Absent: chills, fatigue, fever(s) - EENMT Eyes: Absent: change in vision Balance: Absent: vertigo Mouth/Throat: Absent: sore throat - Cardiovascular Cardiovascular: Present: chest pain, palpitations, dyspnea on exertion. Absent : syncope, heart murmur Rhythm: Absent: abnormal rhythm - Respiratory Respiratory: Present: dyspnea on exertion. Absent: cough, dyspnea - Gastrointestinal Gastrointestinal: Absent: abdominal pain, diarrhea, nausea, vomiting - Genitourinary Genitourinary: Absent: dysuria - Integumentary/Breasts Integumentary: Absent: rash - Neurological Neurological: Absent: dizziness - Endocrine Endocrine: Present: palpitations [facility] Patient Stated Medical History Hypertension Yes - Social History Smoking status: Current some day smoker Substance use type: opiates, methamphetamine Alcohol intake frequency: 3 or more drinks per day Last drink: unknown Housing: apartment Household members: significant other Current occupational status: employed Current residence: Apartment/Private Home Medications Allergies Allergy/AdvReac Type Severity Reaction Status Date / Time diltiazem [From Cardizem] Allergy Mild Itching Verified 11/15/17 17:52 Exam Vital signs: Temperature 98.1 F 11/16/17 07:00 Pulse Rate 91 11/16/17 08:45 Respiratory Rate 17 11/16/17 08:45 Blood Pressure 141/82 H 11/16/17 08:45 Pulse Oximetry 94 11/16/17 08:45 - Constitutional no acute distress, well nourished, cooperative - Routine HEENT Exam Head: Present: normocephalic ENT: Present: mucous membranes moist - Routine Neck Exam Absent: JVD, carotid bruit - Routine Chest/Breast/Axilla Exam Chest wall: Absent: tenderness - Routine Respiratory Exam Present: CTA bilaterally - Routine Cardiovascular Exam Present: tachycardia, irregular rhythm - Routine Abdominal Exam Present: soft, normoactive bowel sounds - Routine Extremities Exam Present: no edema - Routine Skin Exam Present: intact, dry, warm - Routine Neurological Exam Present: alert, oriented X3 - Routine Psychiatric Exam Present: normal affect, normal thought process Results 11/17/17 04:30 11/17/17 04:30 Cardiac Enzymes 11/15/17 11/16/17 Range/Units 21:14 04:12 Troponin I 0.058 D 0.027 (0-0.12) ng/ml CBC 11/16/17 Range/Units 04:12 WBC 7.2 (4.5-11.0) T/MM3 RBC 4.79 (4.50-5.90) M/MM3 Hgb 13.9 (13.5-17.5) GM/DL Hct 41.6 (41-53) % Plt Count 267 (130-400) T/MM3 Neut # (Auto) 5.4 (1.8-7.7) T/MM3 Lymph # (Auto) 1.4 (1-4.8) T/MM3 [place] # (Auto) 0.4 (0-0.8) T/MM3 Eos # (Auto) 0.0 (0-0.5) T/MM3 Baso # (Auto) 0.0 (0-0.2) T/MM3 Comprehensive Metabolic Panel 11/16/17 Range/Units 04:12 Sodium 142 (134-144) MEQ/L Potassium 4.6 (3.6-5) MEQ/L Chloride 107 (98-107) MEQ/L Carbon Dioxide 27 (22-30) MEQ/L BUN 15.0 (9-20) MG/DL Creatinine 1.3 D (0.8-1.5) MG/DL Glucose 129 H (75-110) MG/DL Calcium 8.7 (8.4-10.2) MG/DL Intake and Output 11/15/17 11/16/17 11/16/17 22:59 06:59 14:59 Intake Total 256.666 / 256.666 837.807 / 837.807 Output Total 200 / 200 200 / 200 Balance 256.666 / -143.334 637.807 / 637.807 -200 / -200 Intake: IV 256.666 / 256.666 837.807 / 837.807 Amiodarone 450 mg In NS 500ml 6.666 / 6.666 256.854 / 256.854 250 ml @ 0.5 MG/MIN 17.26 mls/ hr IV .Q15H1M JCARLOS Rx#: [id number] Esmolol Drip 2,500 mg In 250 ml 250.000 / 250.000 580.953 / 580.953 @ 50 MCG/KG/MIN 44.225 mls/hr IV .Q5H40M PRN Rx#:[id number] Output: Urine 200 / 200 200 / 200 Other: Urine Appearance Clear Urine Color Straw Straw Urine Odor Foul Normal Weight 324 lb 15.382 oz 309 lb 8.464 oz Patient Weight 11/17/17 06:59 Weight 309 lb 8.464 oz - Imaging and Cardiology Echo: pending EKG interpretations - EKG EKG results cardiology: sinus rhythm (S/P DCCV) - Dysrhythmias Supraventricular dysrhythmia: atrial fibrillation (with RVR before DCCV) Hospital Course This is a general summary of the patient's hospital course. For more details refer to the complete medical record. Assessment and Plan - Attestation Attestation Narrative: 11/23/17 07:47 Recommendation After examining the patient I agree with the above assessment. I am involved in the formulation of the patient's plan of care. - Assessment and Plan (1) Atrial fibrillation with RVR Status: Acute New A Fib RVR, Known onset - Poor response to BB, Dig and CCB - DCCV today - Antiarrhythmic therapy for rhythm of immediate concern on Sotalol 40mg BID - Monitor cardiac telemetry - EKG in am (2) EtOH dependence Status: Acute Advised to limit alcohol intake (3) Substance abuse Status: Acute Advised to abstain from substance use (4) Mixed hyperlipidemia Status: Chronic lipid panel in AM - Likely needs atorvastatin added (5) Essential (primary) hypertension Status: Chronic Amlodipine 10mg daily, give now (6) Obesity Status: Chronic Dietary consult for weight loss cardiac diet teaching - Assessment and Plan New A Fib RVR, Known onset - Poor response to BB, Dig and CCB - DCCV today - Antiarrhythmic therapy for rhythm of immediate concern on Sotalol 40mg BID - Monitor cardiac telemetry - EKG in am Alcohol dependence: Advised to limit alcohol intake Substance abuse: Advised to abstain from substance use HTN: Start Amlodipine 10mg daily, give now HLD: Lipid panel in am - Will likely need Atorvastatin Obesity: Dietary consult for weight loss cardiac diet teaching
[2017-11-16] MEDS: ENOXAPARIN 150 MG/ML INJECTION SQ SCH ×2 (11:21→22:22)
[2017-11-16] MEDS: SOTALOL 80 MG TABLET PO SCH ×2 (13:51→20:15)
[2017-11-16] MEDS ORDERED: FentaNYL 100 MCG/2 ML INJECTION ONE (14:01)
[2017-11-16] MEDS ORDERED: MIDAZOLAM 2mg/2ml INJECTION ONE (14:01)
[2017-11-16] MEDS: AMLODIPINE 10 MG TABLET PO SCH (16:28)
--- NOTE | 2017-11-16 17:29 | Echocardiogram ---
DATE OF PROCEDURE November 16, 2017 This is a two-dimensional echo with spectral Doppler, color-flow and M-mode. It was obtained in a patient with atrial fibrillation. Left atrium is dilated. Left ventricular end-diastolic dimension is normal. Left ventricular wall thickness is increased. LV systolic function is normal with ejection fraction of about 63%. Right atrium is normal. Right ventricle is normal. Aortic root dimension is normal. Mitral valve is morphologically normal with mild mitral regurgitation. Aortic valve appears to be normal. Tricuspid valve shows [id number] tricuspid regurgitation with moderate pulmonary hypertension with estimated pulmonary artery systolic pressure of 44. Pulmonary valve shows mild pulmonary insufficiency. There is no pericardial effusion. IMPRESSION 1. Normal LV systolic function with ejection fraction of 63%. 2. Left ventricular hypertrophy. 3. Left atrial dilation. 4. Mild mitral regurgitation. 5. Mxmc-bp-awxuyzbm tricuspid regurgitation with moderate pulmonary hypertension with estimated pulmonary artery systolic pressure of 44. 6. Mild pulmonary insufficiency. MTDD
--- NOTE | 2017-11-16 17:42 | DC Cardioversion ---
DATE OF PROCEDURE November 16, 2017 The patient is a 37-year-old gentleman who developed atrial fibrillation yesterday about 5:00 p.m. and was referred for DC cardioversion. Informed consent was obtained after explaining the procedure and the potential risks to the patient who agreed to proceed with the procedure. PROCEDURE DC cardioversion. Conscious sedation was performed using Versed and fentanyl. Anterior-posterior Zoll pads were applied. 360 joules of energy were delivered in a synchronized manner and patient converted from atrial fibrillation to sinus rhythm. He tolerated the procedure well with no complications. IMPRESSION Successful DC cardioversion of atrial fibrillation to sinus rhythm. PLAN Will keep him on antiarrhythmics to maintain sinus. He CHADSVASC is 1 will discontinue aspirin. MTDD
[2017-11-16] MEDS ORDERED: NS 1,000 ML IV SCH (17:45)
[2017-11-17] MEDS: SOTALOL 80 MG TABLET PO SCH (06:12)
[2017-11-17] MEDS: AMLODIPINE 10 MG TABLET PO SCH (08:32)
--- NOTE | 2017-11-17 09:54 | Discharge Summary ---
<Diandra Degroot - Last Filed: 11/17/17 09:51> Discharge Information Date of admission: 11/16/17 14:39 Anticipated date of discharge: 11/17/17 Attending Physician: Blaine Craig MD - Discharge Diagnosis (1) Atrial fibrillation with RVR Status: Acute (2) EtOH dependence Status: Acute (3) Substance abuse Status: Acute (4) Mixed hyperlipidemia Status: Chronic (5) Essential (primary) hypertension Status: Chronic (6) Obesity Status: Chronic Atrial fibrillation, EtoH dependence, Substance abuse, HTN, HLD, Obesity - Laboratory Labs: 11/17/17 04:30 11/17/17 04:30 History of Present Illness HPI: Jeromy is a 37-year-old male with a history of HTN, HLD, who presented the ED for evaluation of rapid heart rate and chest pain. He denies history of rapid heart rate, hypertensive currently off his medications, no prior MIs. He reportedly about half an hour prior to arrival developed left anterior chest pain with radiation to his left arm associated nausea and diaphoresis. He decided to present to the ED when pain did not alleviate. On arrival EKG showed irregularly irregular rhythm at 147. He was given Diltiazem IVP and developed hives. Dr. Craig was contacted for admission to CCU with Esmolol drip for rate control. He is examined in CCU where he admits to illicit drug use in the last 3 days and excessive alcohol intake of a pint or more hard liquor daily. He recognizes his weight in addition to chronic disease increases his risks for cardiac complications. He denies recent illness, fever, chills, sore throat, cough, N/V/ D. Hospital Course This is a general summary of the patient's hospital course. For more details refer to the complete medical record. Hospital course: New A Fib RVR, Known onset - Poor response to BB, Dig and CCB - DCCV today - Antiarrhythmic therapy for rhythm of immediate concern on Sotalol 40mg BID - Monitor cardiac telemetry - EKG in am Alcohol dependence: Advised to limit alcohol intake Substance abuse: Advised to abstain from substance use HTN: Start Amlodipine 10mg daily, give now HLD: Lipid panel in am - Will likely need Atorvastatin Obesity: Dietary consult for weight loss cardiac diet teaching Time spent with patient: 25 - 35 minutes Resuscitation Status: Full Code Exam Vital signs: Temperature 98.2 F 11/17/17 04:00 Pulse Rate 72 11/17/17 06:12 Respiratory Rate 13 11/17/17 04:00 Blood Pressure 132/75 11/17/17 04:00 Pulse Oximetry 98 11/17/17 04:00 - Constitutional no acute distress, obese, cooperative - Routine HEENT Exam Head: Present: normocephalic ENT: Present: mucous membranes moist - Routine Neck Exam Absent: JVD, carotid bruit - Routine Chest/Breast/Axilla Exam Chest wall: Absent: tenderness - Routine Respiratory Exam Present: CTA bilaterally. Absent: rales, wheezes - Routine Cardiovascular Exam Present: RRR, no murmur - Routine Abdominal Exam Present: soft, normoactive bowel sounds - Routine Extremities Exam Present: no edema - Routine Skin Exam Present: intact, dry, warm - Routine Neurological Exam Present: alert, oriented X3 - Routine Psychiatric Exam Present: normal affect, normal thought process Results 11/17/17 04:30 11/17/17 04:30 Cardiac Enzymes 11/16/17 11/16/17 11/17/17 Range/Units 14:40 22:06 04:30 Troponin I 0.122 H 0.119 0.104 (0-0.12) ng/ml Lipids 11/17/17 Range/Units 04:30 Triglycerides 161 H (40-160) MG/DL Cholesterol 219 H (132-199) MG/DL HDL Cholesterol 41 (40-60) MG/DL Cholesterol/HDL Ratio 5.3 H (0-5.0) RATIO CBC 11/17/17 Range/Units 04:30 WBC 8.3 (4.5-11.0) T/MM3 RBC 4.86 (4.50-5.90) M/MM3 Hgb 14.1 (13.5-17.5) GM/DL Hct 43.0 (41-53) % Plt Count 233 (130-400) T/MM3 Comprehensive Metabolic Panel 11/17/17 Range/Units 04:30 Sodium 143 (134-144) MEQ/L Potassium 4.0 (3.6-5) MEQ/L Chloride 107 (98-107) MEQ/L Carbon Dioxide 30 (22-30) MEQ/L BUN 12.0 (9-20) MG/DL Creatinine 1.0 D (0.8-1.5) MG/DL Glucose 102 (75-110) MG/DL Calcium 8.6 (8.4-10.2) MG/DL Intake and Output 11/16/17 11/17/17 11/17/17 22:59 06:59 14:59 Intake Total 266.25 / 266.25 840 / 840 75 / 75 Output Total 300 / 300 Balance -33.75 / -33.75 840 / 840 75 / 75 Intake: IV 266.25 / 266.25 600 / 600 75 / 75 Ns 1,000 ml @ 75 mls/hr IV . 266.25 / 266.25 600 / 600 75 / 75 [id number] [facility] Rx#:[id number] Oral 240 / 240 Output: Urine 300 / 300 Other: Urine Appearance Clear Clear Urine Color Yellow Yellow # Voids 2 1 - Imaging and Cardiology Imaging & Cardiology Narrative: DATE OF PROCEDURE November 16, 2017 The patient is a 37-year-old gentleman who developed atrial fibrillation yesterday about 5:00 p.m. and was referred for DC cardioversion. Informed consent was obtained after explaining the procedure and the potential risks to the patient who agreed to proceed with the procedure. PROCEDURE DC cardioversion. Conscious sedation was performed using Versed and fentanyl. Anterior-posterior Zoll pads were applied. 360 joules of energy were delivered in a synchronized manner and patient converted from atrial fibrillation to sinus rhythm. He tolerated the procedure well with no complications. IMPRESSION Successful DC cardioversion of atrial fibrillation to sinus rhythm. PLAN Will keep him on antiarrhythmics to maintain sinus. He CHADSVASC is 1 will discontinue aspirin. Date of Exam: 11/16/17 Type of Exam(s): US echo doppler complete DATE OF PROCEDURE November 16, 2017 This is a two-dimensional echo with spectral Doppler, color-flow and M-mode. It was obtained in a patient with atrial fibrillation. Left atrium is dilated. Left ventricular end-diastolic dimension is normal. Left ventricular wall thickness is increased. LV systolic function is normal with ejection fraction of about 63%. Right atrium is normal. Right ventricle is normal. Aortic root dimension is normal. Mitral valve is morphologically normal with mild mitral regurgitation. Aortic valve appears to be normal. Tricuspid valve shows wjby-zf-scjifzte tricuspid regurgitation with moderate pulmonary hypertension with estimated pulmonary artery systolic pressure of 44. Pulmonary valve shows mild pulmonary insufficiency. There is no pericardial effusion. IMPRESSION 1. Normal LV systolic function with ejection fraction of 63%. 2. Left ventricular hypertrophy. 3. Left atrial dilation. 4. Mild mitral regurgitation. 5. Dbco-dq-lbktyqwh tricuspid regurgitation with moderate pulmonary hypertension with estimated pulmonary artery systolic pressure of 44. 6. Mild pulmonary insufficiency. Date of Exam: 11/15/17 Ordering Provider: Hector Garcia DO Type of Exam(s): CT angio pulm emboli Reason for Exam(s): Abrupt onset A-fib with RVR Indication: Abrupt onset A-fib with RVR PROCEDURE: CT angio pulm emboli: Encounter: Initial Comparison: None Technique: Axial CT pulmonary angiographic phase images were performed through the chest after the administration of intravenous contrast. Coronal and Sagittal MIP reconstructed images were created and reviewed. Automated Exposure Control and Iterative Reconstruction dose reducing techniques were utilized. Contrast: Omnipaque 350 74 mL Findings: Pulmonary arteries: Exam is diagnostic to the main pulmonary arterial level only. There is no large or central pulmonary embolus. The segmental and subsegmental pulmonary artery branches cannot be adequately evaluated due to poor contrast bolus. Other findings: Hypoinflation with right basilar atelectasis or scarring. 4 mm right upper lobe nodule on image #21 which does not require specific imaging follow-up. The central airways are patent. No pneumothorax. No axillary or mediastinal adenopathy. Heart size is normal. No pericardial effusion. The upper abdomen shows no acute findings. Impression: Limited exam without large or central pulmonary embolus. There is a preliminary report by virtual radiologic. Date of Exam: 11/15/17 Ordering Provider: Ahmet Dee MD Type of Exam(s): XR chest 1V Reason for Exam(s): chest pain Indication: chest pain PROCEDURE: XR chest 1V: Encounter: Initial Comparison: None FINDINGS: The lungs are hypoinflated, but grossly clear. There is no abnormal airspace opacity, pleural effusion or pneumothorax identified. The cardiac silhouette is partially obscured and may be mildly enlarged. The pulmonary vasculature and mediastinum are within normal limits. No significant skeletal abnormality is seen. IMPRESSION: No acute cardiopulmonary abnormality. Discharge Plan - Med Rec/Dispo Referrals/Follow Up: Blaine Craig MD [Physician] - 12/09/17 8:40 am [facility] Instructions: A-fib (Atrial Fibrillation) (GEN), Chronic Hypertension ( DC), Cardioversion (GEN) Additional Instructions: APPOINTMENT AT [facility] ON 12/08/17 AT 3PM WITH REGGIE JUAN J. PLEASE ARRIVE THROUGH THE ADMISSIONS BUILDING AND CHECK IN AT 2:30PM ON THIS DATE. Prescriptions: New Amlodipine [Norvasc] 10 mg PO DAILY #30 tab Aspirin *EC* [Ecotrin] 1 tab PO DAILY #30 tab Atorvastatin [Lipitor] 40 mg PO HS #30 tab Nitroglycerin [Nitrostat] 0.4 mg SL Q5MIN3 PRN #25 tab PRN Reason: Chest Pain Sotalol [Betapace] 40 mg PO ACBID #60 tab Continue hydroCHLOROthiazide [Hydrochlorothiazide] 25 mg PO DAILY #30 tab - Disposition 01 Discharged Home, Self-Care <Blaine Craig - Last Filed: 11/23/17 07:52> Discharge Information Date of admission: 11/16/17 14:39 Attending Physician: Blaine Craig MD - Discharge Diagnosis (1) Atrial fibrillation with RVR Status: Acute (2) EtOH dependence Status: Acute (3) Substance abuse Status: Acute (4) Mixed hyperlipidemia Status: Chronic (5) Essential (primary) hypertension Status: Chronic (6) Obesity Status: Chronic - Laboratory Labs: 11/17/17 04:30 11/17/17 04:30 Hospital Course This is a general summary of the patient's hospital course. For more details refer to the complete medical record. Exam Vital signs: Temperature 97 F 11/17/17 11:45 Pulse Rate 88 11/17/17 14:00 Respiratory Rate 30 H 11/17/17 14:00 Blood Pressure 136/79 11/17/17 11:01 Pulse Oximetry 95 11/17/17 11:45 Results 11/17/17 04:30 11/17/17 04:30 Attestation Narriative - Attestation Attestation Narrative: 11/23/17 07:52 Recommendation After examining the patient I agree with the above assessment. I am involved in the formulation of the patient's plan of care.
[2017-11-17 10:46] VITALS: PULSE 88; O2SAT 95
[2017-11-17] MEDS: ENOXAPARIN 150 MG/ML INJECTION SQ SCH (13:59)
[2017-11-17 14:36] VITALS: BP 136/79; RESP 30; TEMP 97
[2017-11-17] MEDS ORDERED: ATORVASTATIN 40 MG TABLET PO SCH (21:00)
== END 2017-11-17 14:15 | disposition home or self-care (01) | DRG 309 ==
LOC: ED 17:18 → CCU 17:18
PROVIDERS: ADMIT Internal Medicine Cardiovascular Disease; ATTEND Internal Medicine Cardiovascular Disease